=== PATIENT | male | born 1945 | race Caucasian/White ===

== ENCOUNTER 2017-11-21 07:37 | Day surgery (SDC) | payer OTHER ==
[~2017-11-21 07:37] MED LIST: ASA81 MG; AVALIDE 300-12.1 TAB; HYZAAR 100-121 UDTAB; NORVASC5 MG; PROTONIX40 MG; TENORMIN0.5 MG/ML
== END 2017-11-21 14:10 | disposition home or self-care (01) ==
LOC: AMB-ENDOS 07:37
DX: D12.3 Benign neoplasm of transverse colon (principal); K57.30 Diverticulosis of large intestine without perforation or abscess without bleeding; K64.1 Second degree hemorrhoids

== ENCOUNTER 2018-01-27 19:41 | Emergency (ER) | payer OTHER ==
[~2018-01-27] VITALS: Ht 172.7 cm; Wt 81.2 kg
[2018-01-27] MEDS ORDERED: VERAPAMIL ER240 MG (19:59)
== END 2018-01-28 11:00 | disposition left against medical advice (07) ==
LOC: ER 19:41
DX: R10.31 Right lower quadrant pain (principal)

== ENCOUNTER → 2018-05-08 | Day surgery (SDC) | payer OTHER ==
[~2018-05-08] MED LIST changes: +VERAPAMIL ER240 MG
== END | disposition home or self-care (01) ==
LOC: AMB-ENDOS 07:33
DX: D13.1 Benign neoplasm of stomach (principal)

== ENCOUNTER 2019-09-10 07:55 | Day surgery (SDC) | payer OTHER | END 2019-09-10 13:10 | disposition home or self-care (01) | LOC: AMB-ENDOS 07:55 → ADM 13:30 | DX: D12.3 Benign neoplasm of transverse colon (principal); K57.30 Diverticulosis of large intestine without perforation or abscess without bleeding; K64.2 Third degree hemorrhoids ==

== ENCOUNTER 2020-12-15 10:15 | Day surgery (SDC) | payer OTHER | END 2020-12-15 17:43 | disposition home or self-care (01) | LOC: AMB-ENDOS 10:15 | PROVIDERS: ATTEND Colon & Rectal Surgery | DX: D13.1 Benign neoplasm of stomach (principal); D13.2 Benign neoplasm of duodenum; K20.80 Other esophagitis without bleeding; K64.1 Second degree hemorrhoids; Z20.822 Contact with and (suspected) exposure to COVID-19; Z12.11 Encounter for screening for malignant neoplasm of colon ==